=== PATIENT | male | born 1945 | race African-American/Black ===

== ENCOUNTER 2020-02-07 11:43 | Inpatient (IN) | payer MEDICARE, OTHER ==
[~2020-02-07] VITALS: Ht 175.3 cm; Wt 64.9 kg
[2020-02-07 12:55] LABS: CHLORIDE 101 mEq/L (98-107)
[2020-02-07 12:56] LABS: HEMATOCRIT. 31.9 % (42.0-52.0); MEAN CORPUSCULAR HEMOGLOBIN 36.9 pg (28.0-32.0); MEAN PLATELET VOLUME 8.5 fl (7.4-10.4); PLATELET 212 x1000/uL (130-400); RED BLOOD CELL COUNT 2.98 mill/uL (4.7-6.1); RED CELL DISTRIBUTION WIDTH 16.7 % (11.6-14.6)
[2020-02-07 12:59] LABS: ETHANOL BLOOD < 10 mg/dL
[2020-02-07 13:00] LABS: D-DIMER 2.63 mg/L FEU (<0.50); INR 1.3; PARTIAL THROMBOPLASTIN TIME 27.6 sec (23.4-31.0)
[2020-02-07 13:03] LABS: BG BASE EXCESS -1.8 mmol/L (-2.0-2.0); BG CARBOXYHEMOGLOBIN 0.4 % (0.5-1.5); BG DEOXYHEMOGLOBIN 6.2 % (0.0-5.0); BG FRACTION INSPIRED OXYGEN 28; BG HCO3 ACT 20.8 mmol/L (22.0-26.0); BG METHEMOGLOBIN 0.3 % (0.0-1.5); BG OXYGEN SATURATION 93.8 % (92.0-98.5); BG OXYHEMOGLOBIN 93.1 % (94.0-97.0); BG PCO2 28.9 mmHg (35.0-45.0); BG PH 7.475 (7.350-7.450); BG PO2 64.6 mmHg (75.0-100.0); BG SAMPLE SITE RIGHT BRACHIAL; BG TOTAL HEMOGLOBIN 11.4 g/dL (12.0-18.0); BG VENT MODE NASAL CANNULA
[2020-02-07 13:21] LABS: NUCLEATED RED BLOOD CELLS 2 /100 WBC; PLATELET ESTIMATE NORMAL
[2020-02-07 13:34] LABS: CLARITY URINE CLOUDY (CLEAR); COLOR URINE ORANGE (YELLOW); KETONES URINE TRACE (NEGATIVE); LEUKOCYTE ESTERASE URINE 1+ (NEGATIVE); NITRITE URINE POSITIVE (NEGATIVE); OCCULT BLOOD URINE NEGATIVE (NEGATIVE); PROTEIN URINE TRACE (NEGATIVE); SPECIFIC GRAVITY URINE 1.022 (1.005-1.030)
[2020-02-07] MEDS ORDERED: CEFTRIAXONE 1 G PREMIX 50 ML IV ONE (14:15)
[2020-02-07] MEDS ORDERED: SODIUM CHLORIDE 0.9% 1000ML BAG (SEPSIS BOLUS) IV ONE (14:15)
[2020-02-07] MEDS ORDERED: AZITHROMYCIN 500 MG in DEXT 5% WATER 250 ML IV NR (14:15)
[2020-02-07 14:41] LABS: *AMPHETAMINES SCREEN URINE NEGATIVE (NEGATIVE); *BARBITURATES SCREEN URINE NEGATIVE (NEGATIVE)
[2020-02-07 14:42] LABS: *BENZODIAZEPINES SCREEN URINE NEGATIVE (NEGATIVE); *COCAINE SCREEN URINE NEGATIVE (NEGATIVE); CANNABINOID URINE SCREEN NEGATIVE (NEGATIVE); METHADONE URINE SCREEN NEGATIVE (NEGATIVE); OPIATES URINE SCREEN NEGATIVE (NEGATIVE); PHENCYCLIDINE URINE SCREEN NEGATIVE (NEGATIVE)
[2020-02-07] MEDS ORDERED: HYDROCODONE/ACETAMINOPHEN 5/325MG TABLET PO PRN (18:30)
[2020-02-07] MEDS ORDERED: ONDANSETRON HCL 4MG/2ML INJ IV PRN (18:30)
[2020-02-07] MEDS ORDERED: LORAZEPAM 2MG/ML CPJ IV PRN (18:30)
[2020-02-07] MEDS ORDERED: ACETAMINOPHEN 325MG TABLET PO PRN (18:30)
[2020-02-07] MEDS ORDERED: MORPHINE SULFATE 2 MG/ML CPJ (NOT FOR IM USE) IV PRN (18:30)
[2020-02-07] MEDS ORDERED: IPRATROPIUM/ALBUTEROL 0.5-3(2.5)MG/3ML NEB NEB PRN (18:30)
[2020-02-07] MEDS ORDERED: ACETAMINOPHEN 650MG SUPP PR PRN (18:30)
[2020-02-07] MEDS ORDERED: AZITHROMYCIN 500 MG in DEXT 5% WATER 250 ML IV SCH (20:00)
[2020-02-07] MEDS: ENOXAPARIN 40MG/0.4ML SYR SUBCUT SCH (20:45)
[2020-02-07 22:00] VITALS: BP 145/74
[2020-02-08] VITALS: BP 131/65
[2020-02-08 00:31] LABS: CREATINE KINASE 81 IU/L (39-308)
[2020-02-08 00:32] LABS: CREATINE KINASE MB FRACTION 6.4 ng/mL (0.5-3.6)
[2020-02-08 04:00] VITALS: BP 94/59
[2020-02-08 07:19] LABS: BASOPHILS % 0.2 % (0.0-2.0); EOSINOPHILS % 0.1 % (0.0-5.0); HEMATOCRIT. 29.6 % (42.0-52.0); HEMOGLOBIN. 10.3 g/dL (14.0-18.0); LYMPHOCYTES % 9.5 % (20.0-50.0); MEAN CORPUSCULAR HEMOGLOBIN 37.2 pg (28.0-32.0); MEAN CORPUSCULAR VOLUME 106.8 fL (80.0-94.0); MEAN PLATELET VOLUME 8.6 fl (7.4-10.4); MONOCYTES % 4.5 % (2.0-8.0); NEUTROPHILS % 85.7 % (40.0-76.0); PLATELET 180 x1000/uL (130-400); RED BLOOD CELL COUNT 2.77 mill/uL (4.7-6.1); RED CELL DISTRIBUTION WIDTH 16.8 % (11.6-14.6)
[2020-02-08 07:45] LABS: CHLORIDE 106 mEq/L (98-107)
[2020-02-08 08:00] VITALS: BP 123/63
[2020-02-08] MEDS ORDERED: PNEUMOCOCCAL 23-VAL P-SAC VAC 0.5 ML IM ONE (08:00)
[2020-02-08 08:01] LABS: CREATINE KINASE 54 IU/L (39-308)
[2020-02-08 08:04] LABS: CREATINE KINASE MB FRACTION 4.4 ng/mL (0.5-3.6)
[2020-02-08 12:00] VITALS: BP 121/71
[2020-02-08] MEDS: AZITHROMYCIN 500 MG in DEXT 5% WATER 250 ML IV SCH (13:17)
[2020-02-08] MEDS: CEFTRIAXONE 1 G PREMIX 50 ML IV SCH (15:25)
[2020-02-08] MEDS: SODIUM CHLORIDE 0.9% 1,000 ML IV SCH (15:26)
[2020-02-08] MEDS ORDERED: NON FORMULARY PATIENT HOME MED XX SCH (15:30)
[2020-02-08 16:00] VITALS: BP 101/54
[2020-02-08] MEDS ORDERED: MAGNESIUM 2 G PREMIX 50 ML IV SCH (17:00)
[2020-02-08 18:12] LABS: HEPATITIS B SURFACE ANTIGEN NEGATIVE
[2020-02-08 18:42] LABS: HEPATITIS A AB IGM NEGATIVE (NEGATIVE)
[2020-02-08 20:00] VITALS: BP 142/62
[2020-02-08] MEDS: GUAIFENESIN 600MG ER TABLET PO SCH (20:55)
[2020-02-08] MEDS: ENOXAPARIN 40MG/0.4ML SYR SUBCUT SCH (20:55)
[2020-02-09 00:30] VITALS: BP 120/67
[2020-02-09 04:00] VITALS: BP 136/94
[2020-02-09] MEDS: ALBUTEROL 6.7GM HFA INHALER ORI SCH ×3 (06:00→12:00)
[2020-02-09 08:00] VITALS: BP 98/59
[2020-02-09] MEDS ORDERED: FLUTICASONE FUROATE 100 1 INH/CAP ORI SCH (09:00)
[2020-02-09] MEDS ORDERED: POTASSIUM CHLORIDE 20MEQ TABLET SR PO SCH (09:00)
[2020-02-09] MEDS: GUAIFENESIN 600MG ER TABLET PO SCH (09:08)
[2020-02-09] MEDS: CEFTRIAXONE 1 G PREMIX 50 ML IV SCH (09:08)
[2020-02-09 10:33] LABS: BASOPHILS % 0.3 % (0.0-2.0); EOSINOPHILS % 0.5 % (0.0-5.0); HEMOGLOBIN. 10.5 g/dL (14.0-18.0); LYMPHOCYTES % 11.8 % (20.0-50.0); MEAN CORPUSCULAR HEMOGLOBIN 36.5 pg (28.0-32.0); MEAN CORPUSCULAR VOLUME 104.8 fL (80.0-94.0); MEAN PLATELET VOLUME 8.3 fl (7.4-10.4); MONOCYTES % 6.7 % (2.0-8.0); NEUTROPHILS % 80.7 % (40.0-76.0); PLATELET 191 x1000/uL (130-400); RED BLOOD CELL COUNT 2.87 mill/uL (4.7-6.1); RED CELL DISTRIBUTION WIDTH 16.9 % (11.6-14.6)
[2020-02-09 10:42] LABS: CHLORIDE 107 mEq/L (98-107)
[2020-02-09 12:00] VITALS: BP 108/61
[2020-02-09] MEDS: SODIUM CHLORIDE 0.9% 1,000 ML IV SCH (12:10)
[2020-02-09] MEDS: AZITHROMYCIN 500 MG in DEXT 5% WATER 250 ML IV SCH (14:22)
[2020-02-09 14:28] VITALS: BP 111/64
[2020-02-09 16:00] VITALS: BP 102/64
[2020-02-12 05:09] LABS: HIV SCREEN 4G Non Reactive (Non Reactive)
== END 2020-02-09 17:15 | disposition home health service (06) | DRG 871 ==
LOC: ER 11:43 → 7WST 14:13 → SUPCPDRO 18:30 → ENRESERV 20:05 → 5WST 02-09 00:16
PROVIDERS: ADMIT Internal Medicine Nephrology; ATTEND Internal Medicine Nephrology
DX: A41.9 Sepsis, unspecified organism (principal); R65.21 Severe sepsis with septic shock; E43 Unspecified severe protein-calorie malnutrition; J18.9 Pneumonia, unspecified organism; J96.01 Acute respiratory failure with hypoxia; I50.40 Unspecified combined systolic (congestive) and diastolic (congestive) heart failure; N39.0 Urinary tract infection, site not specified; D68.59 Other primary thrombophilia; J44.0 Chronic obstructive pulmonary disease with (acute) lower respiratory infection; D72.810 Lymphocytopenia; D64.9 Anemia, unspecified; Z20.818 Contact with and (suspected) exposure to other bacterial communicable diseases; K76.9 Liver disease, unspecified; N18.9 Chronic kidney disease, unspecified; F17.210 Nicotine dependence, cigarettes, uncomplicated; Z71.6 Tobacco abuse counseling; Z86.73 Personal history of transient ischemic attack (TIA), and cerebral infarction without residual deficits; Z68.21 Body mass index [BMI] 21.0-21.9, adult; Z03.818 Encounter for observation for suspected exposure to other biological agents ruled out
CPT/HCPCS: 36415; 36600; 71045; 80048; 80053; 80305; 80320; 81003; 82375; 82550; 82553; 82805; 83036; 83605; 83735; 83880; 84145; 84484; 85025; 85379; 86705; 86709; 86803; 87340; 87389; 87804; 93005; 99291; J0456; J0696; J1650; J3475; J7030; J7060; G0480; U0003-CS

== ENCOUNTER 2020-02-26 10:28 | Inpatient (IN) | payer MEDICARE, OTHER ==
[~2020-02-26] VITALS: Ht 175.3 cm; Wt 71.8 kg
[2020-02-26 14:35] LABS: BASOPHILS % 1.1 % (0.0-2.0); EOSINOPHILS % 1.8 % (0.0-5.0); HEMATOCRIT. 23.5 % (42.0-52.0); HEMOGLOBIN. 7.9 g/dL (14.0-18.0); LYMPHOCYTES % 10.1 % (20.0-50.0); MEAN CORPUSCULAR HEMOGLOBIN 35.1 pg (28.0-32.0); MEAN CORPUSCULAR VOLUME 104.5 fL (80.0-94.0); MEAN PLATELET VOLUME 8.4 fl (7.4-10.4); MONOCYTES % 6.4 % (2.0-8.0); NEUTROPHILS % 80.6 % (40.0-76.0); PLATELET 317 x1000/uL (130-400); RED BLOOD CELL COUNT 2.25 mill/uL (4.7-6.1); RED CELL DISTRIBUTION WIDTH 18.5 % (11.6-14.6)
[2020-02-26 14:40] LABS: CHLORIDE 107 mEq/L (98-107)
[2020-02-26 14:57] LABS: D-DIMER 5.28 mg/L FEU (<0.50); INR 1.1; PROTHROMBIN TIME 11.5 sec (9.6-11.0)
[2020-02-26] MEDS ORDERED: FUROSEMIDE 40MG/4ML VIAL IVP ONE (15:00)
[2020-02-26] MEDS ORDERED: ASPIRIN 325MG EC TABLET PO ONE (15:00)
[2020-02-26 21:47] VITALS: BP 102/97
[2020-02-26] MEDS ORDERED: ONDANSETRON HCL 4MG/2ML INJ IV PRN (22:30)
[2020-02-26] MEDS ORDERED: LORAZEPAM 2MG/ML CPJ IV PRN (22:30)
[2020-02-26] MEDS ORDERED: MORPHINE SULFATE 2 MG/ML CPJ (NOT FOR IM USE) IV PRN (22:30)
[2020-02-26] MEDS ORDERED: HYDROCODONE/ACETAMINOPHEN 5/325MG TABLET PO PRN (22:30)
[2020-02-26] MEDS ORDERED: ACETAMINOPHEN 325MG TABLET PO PRN (22:30)
[2020-02-27] VITALS: BP 120/72
[2020-02-27 03:43] LABS: CHLORIDE 108 mEq/L (98-107)
[2020-02-27 03:56] LABS: BASOPHILS % 0.7 % (0.0-2.0); EOSINOPHILS % 1.8 % (0.0-5.0); HEMATOCRIT. 22.6 % (42.0-52.0); HEMOGLOBIN. 7.8 g/dL (14.0-18.0); LYMPHOCYTES % 11.4 % (20.0-50.0); MEAN CORPUSCULAR HEMOGLOBIN 35.7 pg (28.0-32.0); MEAN CORPUSCULAR VOLUME 103.7 fL (80.0-94.0); MEAN PLATELET VOLUME 8.3 fl (7.4-10.4); NEUTROPHILS % 79.1 % (40.0-76.0); PLATELET 282 x1000/uL (130-400); RED BLOOD CELL COUNT 2.18 mill/uL (4.7-6.1); RED CELL DISTRIBUTION WIDTH 18.1 % (11.6-14.6)
[2020-02-27 04:00] VITALS: BP 121/59
[2020-02-27 08:00] VITALS: BP 108/60
[2020-02-27] MEDS: THIAMINE HCL 100MG TABLET PO SCH (09:25)
[2020-02-27] MEDS: FERROUS SULFATE 325MG TABLET PO SCH (09:25)
[2020-02-27 10:39] LABS: CLARITY URINE CLEAR (CLEAR); COLOR URINE DARK YELLOW (YELLOW); KETONES URINE NEGATIVE (NEGATIVE); LEUKOCYTE ESTERASE URINE NEGATIVE (NEGATIVE); NITRITE URINE NEGATIVE (NEGATIVE); OCCULT BLOOD URINE NEGATIVE (NEGATIVE); PROTEIN URINE NEGATIVE (NEGATIVE); SPECIFIC GRAVITY URINE 1.012 (1.005-1.030); UROBILINOGEN URINE 0.2 E.U./dL (0.2-1.0)
[2020-02-27 12:00] VITALS: BP 89/53
[2020-02-27] MEDS ORDERED: MAGNESIUM 4 G PREMIX 100 ML IV ONE (14:00)
[2020-02-27] MEDS ORDERED: FUROSEMIDE 20MG/2ML VIAL IVP NR (14:45)
[2020-02-27 16:01] VITALS: BP 109/65
[2020-02-27 20:52] VITALS: BP 91/44
[2020-02-28] VITALS (14 sets, daily range): BP systolic 84–118; BP diastolic 45–67
[2020-02-28 05:48] LABS: CHLORIDE 106 mEq/L (98-107)
[2020-02-28 06:56] LABS: BASOPHILS % 0.7 % (0.0-2.0); EOSINOPHILS % 3.6 % (0.0-5.0); LYMPHOCYTES % 18.1 % (20.0-50.0); MEAN CORPUSCULAR HEMOGLOBIN 35.7 pg (28.0-32.0); MEAN CORPUSCULAR VOLUME 102.3 fL (80.0-94.0); MEAN PLATELET VOLUME 8.2 fl (7.4-10.4); MONOCYTES % 7.2 % (2.0-8.0); NEUTROPHILS % 70.4 % (40.0-76.0); PLATELET 289 x1000/uL (130-400); RED BLOOD CELL COUNT 1.91 mill/uL (4.7-6.1); RED CELL DISTRIBUTION WIDTH 18.6 % (11.6-14.6)
[2020-02-28 07:03] LABS: HEMATOCRIT. 19.5 % (42.0-52.0); HEMOGLOBIN. 6.8 g/dL (14.0-18.0)
[2020-02-28] MEDS: FERROUS SULFATE 325MG TABLET PO SCH (09:00)
[2020-02-28] MEDS: THIAMINE HCL 100MG TABLET PO SCH (09:00)
[2020-02-28] MEDS: CEFTRIAXONE 1 G PREMIX 50 ML IV SCH (09:53)
[2020-02-28] MEDS ORDERED: MIDODRINE HCL 2.5MG TABLET PO NR (12:00)
[2020-02-28] MEDS: PANTOPRAZOLE SODIUM 40 MG/VIAL IV SCH (12:43)
[2020-02-28 14:10] LABS: FOLIC ACID (FOLATE) SERUM 3.1 ng/mL (>5.38)
[2020-02-28] MEDS: MIDODRINE HCL 2.5MG TABLET PO SCH ×2 (16:11→19:49)
[2020-02-29] VITALS (8 sets, daily range): BP systolic 105–134; BP diastolic 62–85
[2020-02-29 07:30] LABS: BASOPHILS % 0.8 % (0.0-2.0); EOSINOPHILS % 2.2 % (0.0-5.0); HEMATOCRIT. 26.9 % (42.0-52.0); HEMOGLOBIN. 9.5 g/dL (14.0-18.0); LYMPHOCYTES % 16.5 % (20.0-50.0); MEAN CORPUSCULAR HEMOGLOBIN 34.3 pg (28.0-32.0); MEAN CORPUSCULAR VOLUME 97.7 fL (80.0-94.0); NEUTROPHILS % 73.5 % (40.0-76.0); PLATELET 273 x1000/uL (130-400); RED BLOOD CELL COUNT 2.76 mill/uL (4.7-6.1); RED CELL DISTRIBUTION WIDTH 18.3 % (11.6-14.6)
[2020-02-29 07:50] LABS: CHLORIDE 106 mEq/L (98-107)
[2020-02-29] MEDS: THIAMINE HCL 100MG TABLET PO SCH (09:13)
[2020-02-29] MEDS: PANTOPRAZOLE SODIUM 40 MG/VIAL IV SCH (09:13)
[2020-02-29] MEDS: FERROUS SULFATE 325MG TABLET PO SCH (09:13)
[2020-02-29] MEDS: MIDODRINE HCL 2.5MG TABLET PO SCH ×2 (09:13→13:26)
[2020-02-29] MEDS: CEFTRIAXONE 1 G PREMIX 50 ML IV SCH (09:16)
[2020-02-29 10:05] LABS: HEMATOCRIT 32.6 % (42.0-52.0); HEMOGLOBIN 11.4 g/dL (14.0-18.0)
[2020-02-29] MEDS ORDERED: FOLIC ACID 1MG TABLET PO SCH (11:30)
[2020-02-29] MEDS ORDERED: MAGNESIUM 2 G PREMIX 50 ML IV NR (12:30)
[2020-02-29] MEDS ORDERED: FUROSEMIDE 20MG/2ML VIAL IVP SCH (15:30)
== END 2020-02-29 17:53 | disposition home or self-care (01) | DRG 811 ==
LOC: ER 10:28 → EDBEDREQTM 14:58 → EDBEDREQ 14:58 → 6WST 16:03 → EDBEDREQ 16:09 → EDBEDREQTM 16:09 → ENRESERV 20:37
PROVIDERS: ADMIT Internal Medicine Nephrology; ATTEND Internal Medicine Nephrology
PROC: 30233N1 Transfusion of Nonautologous Red Blood Cells into Peripheral Vein, Percutaneous Approach (ICD-10-PCS; principal; 2020-02-28)
DX: D53.9 Nutritional anemia, unspecified (principal); E43 Unspecified severe protein-calorie malnutrition; E87.1 Hypo-osmolality and hyponatremia; J98.11 Atelectasis; R18.8 Other ascites; I50.30 Unspecified diastolic (congestive) heart failure; I95.9 Hypotension, unspecified; I11.0 Hypertensive heart disease with heart failure; K74.60 Unspecified cirrhosis of liver; E83.42 Hypomagnesemia; F17.210 Nicotine dependence, cigarettes, uncomplicated; E53.8 Deficiency of other specified B group vitamins; J44.9 Chronic obstructive pulmonary disease, unspecified; K83.8 Other specified diseases of biliary tract; Z68.23 Body mass index [BMI] 23.0-23.9, adult; Z71.6 Tobacco abuse counseling; Z87.440 Personal history of urinary (tract) infections; R74.0 Nonspecific elevation of levels of transaminase and lactic acid dehydrogenase [LDH]
CPT/HCPCS: 36415; 71045; 74181; 76700; 80048; 80053; 80076; 81003; 82270; 82607; 82728; 82746; 82977; 83540; 83550; 83735; 83880; 84145; 84484; 85014; 85018; 85025; 85379; 86850; 86900; 86920; 93005; 93970; 93976; 96374; 97116; 97162; 99285; C9113; J0696; J1940; J3475; P9016